=== PATIENT | male | born 1955 | race Caucasian/White ===

== ENCOUNTER 2016-10-01 18:02 | Inpatient (IN) ==
[2016-10-01] MEDS ORDERED: Piperacillin/Tazobactam 3.375 GM in D5% in Water (Mini-Bag+) 100 ML IVPB ONE (19:43)
[2016-10-01] MEDS ORDERED: Vancomycin 1,000 MG in D5% in Water 250 ML IVPB ONE (19:43)
[2016-10-01 20:06] LABS: Basophils % 0.2 %; Eosinophils % 0.1 %; Hematocrit 42.5 % (37.5-50.1); Hemoglobin 13.6 g/dL (12.9-16.9); Immature Granulocytes % 0.8 % (0-4); Lymphocytes % 6.2 %; Mean Corpuscular Hemoglobin 28.6 pg (28.0-33.3); Mean Corpuscular Volume 89.5 fL (83.0-100.0); Mean Platelet Volume 10.1 fL (9.4-12.4); Monocytes # 1.5 K/mcL (0.0-1.3); Monocytes % 9.1 %; Neutrophils # 13.8 K/mcL (1.6-8.9); Platelet Count 146 K/mcL (140-400); Red Blood Count 4.75 M/mcL (4.19-5.50); Red Cell Distribution Width 14.1 % (11.5-14.5); Segmented Neutrophils % 83.6 %
[2016-10-01 20:12] LABS: INR 1.3; Prothrombin Time 14.5 Seconds (9.4-12.1)
[2016-10-01 20:14] LABS: Activated Partial Thrombo Time 30.8 Seconds (26.0-36.0)
[2016-10-01 20:21] LABS: Albumin 2.7 g/dL (3.5-5.0); Albumin/Globulin Ratio 0.5 (1.1-2.2); Bilirubin,Direct 0.3 mg/dL (0.0-0.5); Bilirubin,Indirect 0.3 mg/dL (0.0-1.2); Bilirubin,Total 0.6 mg/dL (0.2-1.2); Calcium 10.3 mg/dL (8.6-10.8); Globulin 5.4 g/dL (2.4-3.5); Magnesium 1.4 mg/dL (1.6-2.6); Phosphorous 2.8 mg/dL (2.3-4.7); Total Protein 8.1 g/dL (6.0-8.3)
[2016-10-01] MEDS ORDERED: Magnesium Sulfate 1 GM in D5% in Water 100 ML IVPB ONE (20:35)
[2016-10-01] MEDS ORDERED: Azithromycin 500 MG in D5% in Water 250 ML IVPB ONE (20:47)
[2016-10-01] MEDS: 0.9 % Sodium Chloride 1,000 ML IVC SCH ×2 (21:16→23:23)
[2016-10-01 22:08] LABS: Bilirubin,Urine Negative (Negative); Blood,Urine Moderate (Negative); Clarity,Urine Clear (Clear); Color,Urine Yellow (Yellow); Glucose,Urine (UA) Normal (Normal); Ketones,Urine Negative (Negative); Leukocyte Esterase,Urine Negative (Negative); Nitrite,Urine Negative (Negative); Protein,Urine 100 mg/dL (Neg-Trace); Specific Gravity,Urine 1.014 (1.010-1.025); Urobilinogen,Urine Normal (Normal)
[2016-10-01 22:10] LABS: Bacteria,Urine None Seen per hpf (None-Few); Hyaline Casts,Urine None Seen per lpf (None-Few); Squamous Epithelial Cell,Urine Moderate per lpf (None-Few); WBC,Urine 0-3 per hpf (0-3)
[2016-10-01 22:20] LABS: RBC,Urine 0-3 per hpf (0-3)
[2016-10-01] MEDS ORDERED: 0.9 % Sodium Chloride 1,000 ML IVC SCH (22:30)
[2016-10-01] MEDS ORDERED: Ondansetron 4 MG/2 ML VIAL IVP PRN (22:30)
[2016-10-01] MEDS ORDERED: Acetaminophen 325 MG TABLET PO PRN (22:30)
--- NOTE | 2016-10-01 22:30 | Internal Med History&Physical ---
<Melissa King - Last Filed: 10/01/16 23:25> Date of Encounter: 10/01/16 Time of Encounter: 21:45 Assessment and Plan (1) Sepsis Current visit: No Status: Acute - 2 SIRS criteria (WBC 16.5 & HR 110). Lactic acid 1.0. - Likely secondary to LLL Strept. pneumoniae pneumonia and/or possible GI infection (given recent nausea/vomiting/diarrhea). - Blood culture pending. - Will obtain sputum culture and GI infection panel. - Continue rehydration with IV NS. - Continue IV ceftriaxone and azithromycin for pneumonia. - Closely monitor Time spent on admission: 45 minutes. Qualifiers: Sepsis type: Pneumococcus Qualified Code(s): A40.3 - Sepsis due to Streptococcus pneumoniae (2) Pneumonia Current visit: Yes Status: Acute - Worsening shortness of breath and productive cough with yellow sputum for 2-3 weeks. - CT chest/abdomen/pelvis found left lower lobe pneumonia with 3 mm centrilobular nodules. - Urine antigen positive for Strept. pneumoniae. Negative for Legionella. - Will obtain sputum culture. - Continue IV ceftriaxone and azithromycin. Further de-escalation based on clinical picture and culture result. Qualifiers: Pneumonia type: due to Pneumococcus Laterality: left Lung location: lower lobe of lung Qualified Code(s): J13 - Pneumonia due to Streptococcus pneumoniae (3) Gastroenteritis Current visit: Yes Status: Acute - One-week history of nausea/vomiting/diarrhea. - Check GI infection panel and stool culture. - May consider antimicrobial if the tests come positive for infections other than viral. (4) Acute on chronic renal failure Current visit: Yes Status: Acute - VANDANA on CKD with SCr 3.04 today (baseline ~ 2.5). - Likely prerenal given current sepsis picture and reported poor oral intake with nausea/vomiting/diarrhea. - Seems to improve (given SCr was 3.55 at [facility] yesterday). - Continue hydration with IV NS. - Avoid nephrotoxin. - Continue to monitor renal function and electrolytes. Qualifiers: Acute renal failure type: unspecified Chronic kidney disease stage: stage 3 (moderate) Qualified Code(s): N17.9 - Acute kidney failure, unspecified; N18.3 - Chronic kidney disease, stage 3 (moderate) (5) Hypomagnesemia Current visit: Yes Status: Acute - Mg 1.4 on initial presentation. - Patient had received MgSO4 1 gram IV in ED. - Continue to monitor serum Mg. (6) COPD (chronic obstructive pulmonary disease) Current visit: Yes Status: Chronic - Duoneb prn. Qualifiers: COPD type: unspecified COPD Qualified Code(s): J44.9 - Chronic obstructive pulmonary disease, unspecified (7) History of lung cancer Current visit: Yes Status: Chronic - History of right lung cancer s/p right pneumonectomy in 11/2014 and last chemotherapy in 09/2015. - Per patient, he sees oncologist at [facility] and is told he is in remission. (8) DVT prophylaxis Current visit: Yes Status: Acute - SQ heparin. Internal Medicine - H&P: HPI Chief complaint: Nausea/vomiting/diarrhea Admitted From: Emergency Dept Plans for Post Hospital Care: Home History of present illness: Mr. Escalante is a 61 year old male with PMH of CKD stage 3, COPD and history of right lung cancer s/p right pneumonectomy in 11/2014 and last chemo in 09/2015. Patient presented with complaint of nausea, vomiting and diarrhea for one week. Patient describes the diarrhea as watery brown stools 15-20 times a day but no blood or dark stool. Other associated symptoms include chills and poor appetite. Patient states having similar symptoms at last week of May 2016 and was hospitalized at [facility] for dehydration. Per patient, he only got IV fluid at time and he got better. Patient also reports having worsening shortness of breath and productive cough with yellow sputum for 2-3 weeks. Patient notices increase in his prn inhaler use. Patient denies fever, chest pain/discomfort, abdominal pain, dysuria, skin rash/itchiness. Per patient, he initially presented to [facility] on 09/30/16 and received IV fluid and antibiotic there but then discharged home. Patient feel his symptoms are not getting better so presented to [place] ED. Patient denies recent travel or sick contact. Patient denies eating raw food or food other than his normal usual. In ED, patient was noted to have leukocytosis (WBC 16.5) & tachycardia (HR 110) . CT chest/abdomen/pelvis found left lower lobe pneumonia with 3 mm centrilobular nodules. Patient received 1-L NS bolus, IV ceftriaxone and azithromycin in ED. Past Med Surg Social Fam HX - Past Medical History Medical history: cancer (Right lung cancer), COPD, hypertension, other (CKD stage 3) Psychiatric history: no psych history - Past Surgical History Surgical History: other (Right pneumonectomy 11/2014) - Social History Smoking Status: Former smoker Smokeless Tobacco Status: No Alcohol use: none Drug use: none - Family History Brother Hx Family Cancer: Yes (colon cancer) Father Hx Family Respiratory Disorders: Yes (COPD) Mother Living Status: Age at : 70 Cause of : Brain tumor Hx Family Cardiac Disorders: No Hx Family Respiratory Disorders: Yes (COPD) Hx Family Cancer: Yes (lung) Hx Family GI Disorders: No Hx Family Genitourinary Disorders: No Hx Family Endocrine Disorder: No Hx Family Musculoskeletal Disorders: No Hx Family Neuromuscular Disorders: No Hx Family Neurologic Disorders: No Hx Family HEENT Disorders: No Hx Family Autoimmune Disorders: No Hx Family Reproductive Disorders: No Hx Family Psychosocial Disorders: No Hx Family Medical Disorders: No Internal Medicine - H&P: Meds Metoprolol XL (24 HR) Succ [Toprol XL] 25 mg PO QAM 04/01/15 [History] Albuterol Sulfate [Proair Hfa] 2 puff IH Q4H PRN 12/13/15 [History] Calcitriol [Rocaltrol] 0.25 mcg PO DAILY 10/01/16 [History] Ergocalciferol (VITAMIN D2) [Vitamin D2] 50,000 unit PO QWEEK 10/01/16 [History] Allergies No Known Allergies Allergy (Verified 12/13/15 07:31) All Systems PM: A 10-system review of systems was performed and is negative for pertinent findings except as documented above in the HPI. - Constitutional Constitutional: anorexia, chills, no fever(s) - EENT Eyes: no change in vision Ears: no decreased hearing Nose, mouth and throat: no dysphagia, no odynophagia - Cardiovascular Cardiovascular ROS IM: no chest pain, no edema, no lightheadedness, no syncope - Respiratory Respiratory: as per HPI, cough, dyspnea, change in phlegm color (Yellow sputum) , no hemoptysis - Gastrointestinal Gastrointestinal: as per HPI, diarrhea, nausea, vomiting, no abdominal pain, no hematochezia, no melena - Genitourinary Genitourinary ROS male: no difficulty urinating, no dysuria, no hematuria - Musculoskeletal Musculoskeletal ROS IM: no arthralgias, no myalgias - Integumentary Integumentary IM: no pruritus, no rash - Neurological Neurological ROS: no focal weakness, no numbness, no tingling - Hematologic/Lymphatic Hematologic/Lymphatic: easy bruising, no easy bleeding - Constitutional Vitals: Temp Pulse Resp BP Pulse Ox 98.6 F 110 20 123/89 98 10/01/16 18:25 10/01/16 19:43 10/01/16 19:43 10/01/16 19:43 10/01/16 19:43 General appearance: Present: cooperative, A&O X 3, no acute distress, answers questions appropriately - Head Head exam: Present: atraumatic, normocephalic - Eye Eye exam: Present: EOMI, PERRL, conjuntiva pink, sclera anicteric - ENT ENT exam: Present: mucous membranes dry - Neck Neck exam general surgery: Present: supple, trachea midline. Absent: lymphadenopathy - Respiratory Respiratory exam: Present: decreased breath sounds (Right lung). Absent: accessory muscle use, rales, rhonchi, wheezes - Cardiovascular Cardiovascular exam: Present: +S1, +S2, tachycardia. Absent: diastolic murmur, gallop, rubs, systolic murmur - GI/Abdominal GI/Abdominal exam: Present: normal bowel sounds, soft, no peritoneal signs. Absent: distended, tenderness - Extremities Exam Extremities exam: Present: warm, radial pulses palpable and symmetrical. Absent : calf tenderness, cyanotic, pedal edema - Neurological Exam Neurological exam: Present: CN II-XII intact, oriented X3, no focal deficits. Absent: pronater drift, facial droop, speech deficit - Skin Skin exam: Present: dry, intact, warm Internal Med - H&P Results - Labs CBC & Chem 7: 10/01/16 19:57 10/01/16 19:57 Labs: Urine 10/01/16 Range/Units 22:00 Urine Color Yellow (Yellow) Urine Clarity Clear (Clear) Urine pH 6.0 (5.0-8.0) pH Units Ur Specific [place] 1.014 (1.010-1.025) Urine Protein 100 H (Neg-Trace) mg/dL Urine Glucose (UA) Normal (Normal) mg/dL <Benito Min - Last Filed: 10/02/16 00:24> Date of Encounter: 10/01/16 Internal Medicine - H&P: HPI History of present illness: Mr. Escalante is a 61 year old male All Systems PM: A 10-system review of systems was performed and is negative for pertinent findings except as documented above in the HPI. - Constitutional Vitals: Temp Pulse Resp BP Pulse Ox 99.2 F 108 18 149/106 98 10/01/16 22:54 10/01/16 22:54 10/01/16 22:54 10/01/16 22:54 10/01/16 22:54 Internal Med - H&P Results - Labs CBC & Chem 7: 10/01/16 19:57 10/01/16 19:57 - Attending Attestation Date of service is 10/01/2016. I examined this patient and my medical decision-making was reviewed with the Resident Physician, Dr Melissa King. I agree with the documented findings, disposition and treatment plan as described except to the extent set forth below. My findings are summarized below: Patient presented to the hospital with diarrhea, dehydration and shortness of breath. On exam left lung is clear, right hemithorax has no breath sounds audible. Assessment: Left lower lobe pneumonia based on chills, shortness of breath and CT findings of pneumonia which I have personally reviewed. Plan: Ceftriaxone and azithromycin. IV fluids for acute on chronic renal failure.
[2016-10-01] MEDS ORDERED: Ipratropium/Albuterol Neb 3 ML IH PRN (23:26)
[2016-10-01] MEDS ORDERED: 0.9 % Sodium Chloride 1,000 ML IVC ONE (23:32)
[2016-10-02] MEDS: Azithromycin 500 MG in D5% in Water 250 ML IVPB SCH (03:20)
[2016-10-02] MEDS: 0.9 % Sodium Chloride 1,000 ML IVC SCH ×3 (03:21→21:08)
[2016-10-02 05:05] LABS: Basophils % 0.2 %; Eosinophils % 0.3 %; Hematocrit 39.1 % (37.5-50.1); Hemoglobin 12.5 g/dL (12.9-16.9); Immature Granulocytes % 0.8 % (0-4); Lymphocytes # 1.1 K/mcL (0.6-4.6); Lymphocytes % 8.5 %; Mean Corpuscular Hemoglobin 28.6 pg (28.0-33.3); Mean Corpuscular Volume 89.5 fL (83.0-100.0); Mean Platelet Volume 11.2 fL (9.4-12.4); Monocytes # 1.4 K/mcL (0.0-1.3); Monocytes % 10.4 %; Neutrophils # 10.6 K/mcL (1.6-8.9); Platelet Count 110 K/mcL (140-400); Red Blood Count 4.37 M/mcL (4.19-5.50); Red Cell Distribution Width 14.1 % (11.5-14.5); Segmented Neutrophils % 79.8 %
--- NOTE | 2016-10-02 05:12 | Emergency Department Note ---
Disposition Clinical Impression: Pneumonia Qualifiers: Pneumonia type: due to Pneumococcus Laterality: left Lung location: lower lobe of lung Qualified Code(s): J13 - Pneumonia due to Streptococcus pneumoniae Disposition: Admitted As Inpatient Condition: Fair General Adult HPI - General Chief complaint: ED Nausea/Vomiting/Diarrhea Stated complaint: "Kidney failure" Time Seen by Provider: 10/01/16 19:26 Source: patient Limitations: no limitations Nursing Notes Reviewed: Yes Vital Signs Reviewed: Yes - History of Present Illness HPI Narrative: 61-year-old male presents with concern for acute kidney injury. He was seen at an outside hospital yesterday and was told to [place] was elevated. Ultimately he came this evening for recheck of his creatinine. I did note that his white blood cell count was elevated at the outside hospital at 21,000. I did think this in the setting of recent cough he warranted further workup. He reports some cough with productive sputum and has 1 long from previous lung cancer. He denies sick or ill contacts. Pain Scale: 0 - Related Data Home Medications Medication Instructions Recorded Confirmed Metoprolol XL (24 HR) Succ [Toprol 25 mg PO QAM 04/01/15 10/01/16 XL] Albuterol Sulfate [Proair Hfa] 2 puff IH Q4H PRN 12/13/15 10/01/16 Calcitriol [Rocaltrol] 0.25 mcg PO DAILY 10/01/16 10/01/16 Ergocalciferol (VITAMIN D2) 50,000 unit PO QWEEK 10/01/16 10/01/16 [Vitamin D2] Allergies Allergy/AdvReac Type Severity Reaction Status Date / Time No Known Allergies Allergy Verified 12/13/15 07:31 All systems ED: reviewed and negative except as stated. Past Medical History - Past Medical History Medical history: Reports: cancer (Right lung cancer), COPD, hypertension, other (CKD stage 3) Surgical history: Reports: other (Right pneumonectomy 11/2014) Psychiatric history: Reports: no psych history - Social History Smoking Status: Former smoker Smokeless Tobacco Status: No Alcohol use: Reports: none Drug use: Reports: none Physical Exam - General Limitations: no limitations General appearance: alert, in no apparent distress - Head Head exam: atraumatic - Eye Eye exam: Present: normal appearance - ENT ENT exam: normal exam - Neck Neck exam: Present: normal inspection - Chest Chest inspection: Present: normal inspection - Respiratory Respiratory exam: Present: normal lung sounds bilaterally - Cardiovascular Cardiovascular exam: Present: tachycardia - Abdominal Exam Abdominal exam: Present: soft, Non-Tender - Extremities Exam Extremities exam: Present: normal inspection, full ROM - Expanded Lower Extremity Exam Neurovascular/Tendon exam: Present: normal capillary refill, pulse deficit Gait: observed and normal, not tested/not observed - Back Exam Back exam: Present: normal inspection - Neurological Exam Neurological exam: Present: alert, oriented X3, CN II-XII intact - Psychiatric Psychiatric exam: Present: normal affect, normal mood - Skin Skin exam: Present: warm, dry Course Vital Signs Temperature 98.6 F 10/01/16 18:25 Pulse Rate 115 10/01/16 18:25 Respiratory Rate 18 10/01/16 18:25 Blood Pressure 122/79 10/01/16 18:25 O2 Sat by Pulse Oximetry 97 10/01/16 18:25 Temperature 99.2 F 10/01/16 22:54 Pulse Rate 108 10/01/16 22:54 Respiratory Rate 18 10/01/16 22:54 Blood Pressure 149/106 10/01/16 22:54 O2 Sat by Pulse Oximetry 98 10/01/16 22:54 Oxygen Delivery Oxygen Delivery Room Air Medical Decision Making - MDM Narrative Medical decision making narrative: Patient found have acute kidney injury, pneumonia on CAT scan. Community- acquired antibiotics initiated. Lactate was checked and was normal. IV fluids given. Patient does have improvement of creatinine from yesterday. Plan to admit for further evaluation of pneumonia in the setting of acute kidney injury and underlying renal dysfunction. - Medical Records Medical records reviewed: Yes I reviewed the patient's medical records. - Lab Data Lab results reviewed: Yes I reviewed the patient's lab results. Result diagrams: 10/01/16 19:57 10/01/16 19:57 Lab Results 10/01/16 10/01/16 10/01/16 Range/Units 19:57 19:57 19:57 WBC 16.5 H (4.3-11.1) K/mcL RBC 4.75 (4.19-5.50) M/mcL Hgb 13.6 (12.9-16.9) g/dL Hct 42.5 (37.5-50.1) % MCV 89.5 (83.0-100.0) fL MCH 28.6 (28.0-33.3) pg MCHC 32.0 (31.6-35.5) g/dL RDW 14.1 (11.5-14.5) % Plt Count 146 (140-400) K/mcL MPV 10.1 (9.4-12.4) fL Immature Gran % 0.8 (0-4) % Seg Neutrophils % 83.6 % Lymphocytes % 6.2 % Monocytes % 9.1 % Eosinophils % 0.1 % Basophils % 0.2 % Neutrophils # 13.8 H (1.6-8.9) K/mcL Lymphocytes # 1.0 (0.6-4.6) K/mcL Monocytes # 1.5 H (0.0-1.3) K/mcL Eosinophils # 0.0 (0.0-0.6) K/mcL Basophils # 0.0 (0.0-0.2) K/mcL PT (9.4-12.1) Seconds INR APTT (26.0-36.0) Seconds Sodium (136-145) mEq/L Potassium (3.5-4.5) mEq/L Chloride (98-109) mEq/L Carbon Dioxide (19-29) mEq/L BUN (8-26) mg/dL Creatinine (0.72-1.25) mg/dL Est GFR ( Amer) (> 60) Est GFR (Non-Af Amer) (> 60) BUN/Creatinine Ratio (6-26) Glucose (70-99) mg/dL POC Glucose (58-89) Calculated Osmolality (280-300) Lactic Acid (0.5-2.2) mmol/L Calcium (8.6-10.8) mg/dL Phosphorus (2.3-4.7) mg/dL Magnesium (1.6-2.6) mg/dL Total Bilirubin (0.2-1.2) mg/dL Direct Bilirubin (0.0-0.5) mg/dL Indirect Bilirubin (0.0-1.2) mg/dL AST (5-34) Units/L ALT (0-55) Units/L Alkaline Phosphatase (38-126) Units/L Troponin I (0-0.03) ng/mL B-Natriuretic Peptide 112 H (0-100) pg/mL Serum Total Protein (6.0-8.3) g/dL Albumin (3.5-5.0) g/dL Globulin (2.4-3.5) g/dL Albumin/Globulin Ratio (1.1-2.2) Lipase < 10 (8-78) Units/L Urine Color (Yellow) Urine Clarity (Clear) Urine pH (5.0-8.0) pH Units Ur Specific [place] (1.010-1.025) Urine Protein (Neg-Trace) mg/dL Urine Glucose (UA) (Normal) mg/dL Urine Ketones (Negative) mg/dL Urine Blood (Negative) Urine Nitrite (Negative) Urine Bilirubin (Negative) Urine Urobilinogen (Normal) mg/dL Ur Leukocyte Esterase (Negative) Urine Microscopic RBC (0-3) per hpf Urine Microscopic WBC (0-3) per hpf Ur Squamous Epith Cells (None-Few) per lpf Urine Bacteria (None-Few) per hpf Hyaline Casts (None-Few) per lpf Urine Yeast Ur Culture Indicated? (NO) 10/01/16 10/01/16 10/01/16 Range/Units 19:57 19:57 19:57 WBC (4.3-11.1) K/mcL RBC (4.19-5.50) M/mcL Hgb (12.9-16.9) g/dL Hct (37.5-50.1) % MCV (83.0-100.0) fL MCH (28.0-33.3) pg MCHC (31.6-35.5) g/dL RDW (11.5-14.5) % Plt Count (140-400) K/mcL MPV (9.4-12.4) fL Immature Gran % (0-4) % Seg Neutrophils % % Lymphocytes % % Monocytes % % Eosinophils % % Basophils % % Neutrophils # (1.6-8.9) K/mcL Lymphocytes # (0.6-4.6) K/mcL Monocytes # (0.0-1.3) K/mcL Eosinophils # (0.0-0.6) K/mcL Basophils # (0.0-0.2) K/mcL PT 14.5 H (9.4-12.1) Seconds INR 1.3 APTT 30.8 (26.0-36.0) Seconds Sodium 138 (136-145) mEq/L Potassium 4.0 (3.5-4.5) mEq/L Chloride 106 (98-109) mEq/L Carbon Dioxide 21 (19-29) mEq/L BUN 52 H (8-26) mg/dL Creatinine 3.04 H (0.72-1.25) mg/dL Est GFR ( Amer) 26 L (> 60) Est GFR (Non-Af Amer) 21 L (> 60) BUN/Creatinine Ratio 17 (6-26) Glucose 110 H (70-99) mg/dL POC Glucose (58-89) Calculated Osmolality 301 H (280-300) Lactic Acid 1.0 (0.5-2.2) mmol/L Calcium 10.3 (8.6-10.8) mg/dL Phosphorus 2.8 (2.3-4.7) mg/dL Magnesium 1.4 L (1.6-2.6) mg/dL Total Bilirubin 0.6 (0.2-1.2) mg/dL Direct Bilirubin 0.3 (0.0-0.5) mg/dL Indirect Bilirubin 0.3 (0.0-1.2) mg/dL AST 13 (5-34) Units/L ALT 12 (0-55) Units/L Alkaline Phosphatase 111 (38-126) Units/L Troponin I (0-0.03) ng/mL B-Natriuretic Peptide (0-100) pg/mL Serum Total Protein 8.1 (6.0-8.3) g/dL Albumin 2.7 L (3.5-5.0) g/dL Globulin 5.4 H (2.4-3.5) g/dL Albumin/Globulin Ratio 0.5 L (1.1-2.2) Lipase (8-78) Units/L Urine Color (Yellow) Urine Clarity (Clear) Urine pH (5.0-8.0) pH Units Ur Specific [place] (1.010-1.025) Urine Protein (Neg-Trace) mg/dL Urine Glucose (UA) (Normal) mg/dL Urine Ketones (Negative) mg/dL Urine Blood (Negative) Urine Nitrite (Negative) Urine Bilirubin (Negative) Urine Urobilinogen (Normal) mg/dL Ur Leukocyte Esterase (Negative) Urine Microscopic RBC (0-3) per hpf Urine Microscopic WBC (0-3) per hpf Ur Squamous Epith Cells (None-Few) per lpf Urine Bacteria (None-Few) per hpf Hyaline Casts (None-Few) per lpf Urine Yeast Ur Culture Indicated? (NO) 10/01/16 10/01/16 10/01/16 Range/Units 19:57 22:00 22:57 WBC (4.3-11.1) K/mcL RBC (4.19-5.50) M/mcL Hgb (12.9-16.9) g/dL Hct (37.5-50.1) % MCV (83.0-100.0) fL MCH (28.0-33.3) pg MCHC (31.6-35.5) g/dL RDW (11.5-14.5) % Plt Count (140-400) K/mcL MPV (9.4-12.4) fL Immature Gran % (0-4) % Seg Neutrophils % % Lymphocytes % % Monocytes % % Eosinophils % % Basophils % % Neutrophils # (1.6-8.9) K/mcL Lymphocytes # (0.6-4.6) K/mcL Monocytes # (0.0-1.3) K/mcL Eosinophils # (0.0-0.6) K/mcL Basophils # (0.0-0.2) K/mcL PT (9.4-12.1) Seconds INR APTT (26.0-36.0) Seconds Sodium (136-145) mEq/L Potassium (3.5-4.5) mEq/L Chloride (98-109) mEq/L Carbon Dioxide (19-29) mEq/L BUN (8-26) mg/dL Creatinine (0.72-1.25) mg/dL Est GFR ( Amer) (> 60) Est GFR (Non-Af Amer) (> 60) BUN/Creatinine Ratio (6-26) Glucose (70-99) mg/dL POC Glucose 130 H (58-89) Calculated Osmolality (280-300) Lactic Acid (0.5-2.2) mmol/L Calcium (8.6-10.8) mg/dL Phosphorus (2.3-4.7) mg/dL Magnesium (1.6-2.6) mg/dL Total Bilirubin (0.2-1.2) mg/dL Direct Bilirubin (0.0-0.5) mg/dL Indirect Bilirubin (0.0-1.2) mg/dL AST (5-34) Units/L ALT (0-55) Units/L Alkaline Phosphatase (38-126) Units/L Troponin I 0.01 (0-0.03) ng/mL B-Natriuretic Peptide (0-100) pg/mL Serum Total Protein (6.0-8.3) g/dL Albumin (3.5-5.0) g/dL Globulin (2.4-3.5) g/dL Albumin/Globulin Ratio (1.1-2.2) Lipase (8-78) Units/L Urine Color Yellow (Yellow) Urine Clarity Clear (Clear) Urine pH 6.0 (5.0-8.0) pH Units Ur Specific [place] 1.014 (1.010-1.025) Urine Protein 100 H (Neg-Trace) mg/dL Urine Glucose (UA) Normal (Normal) mg/dL Urine Ketones Negative (Negative) mg/dL Urine Blood Moderate H (Negative) Urine Nitrite Negative (Negative) Urine Bilirubin Negative (Negative) Urine Urobilinogen Normal (Normal) mg/dL Ur Leukocyte Esterase Negative (Negative) Urine Microscopic RBC 0-3 (0-3) per hpf Urine Microscopic WBC 0-3 (0-3) per hpf Ur Squamous Epith Cells Moderate H (None-Few) per lpf Urine Bacteria None Seen (None-Few) per hpf Hyaline Casts None Seen (None-Few) per lpf Urine Yeast Test Not Performed Ur Culture Indicated? NO (NO)
[2016-10-02 05:23] LABS: Calcium 9.4 mg/dL (8.6-10.8); Magnesium 1.5 mg/dL (1.6-2.6); Potassium 3.9 mEq/L (3.5-4.5)
[2016-10-02] MEDS: *HR* Heparin 5,000 UNIT/ML VIAL SQ SCH ×3 (05:37→21:07)
--- NOTE | 2016-10-02 11:28 | Internal Med Progress Note ---
<Chuy Dale - Last Filed: 10/02/16 14:36> Date of Encounter: 10/02/16 Time of Encounter: 11:11 - Assessment and plan (1) Sepsis Current Visit: No Status: Acute Assessment and plan: SIRS 2/4 on admission HR 115, and WBC 16.5 with Pneumoniae and/or GI source. Today HR 120, WBC 13.3. Urine - positive for s. pneumoniae. Chest CT LLL pneumoniae 3 mm central lobular nodule In ED started on Vanc + zosyn and then switched to Azithromcin + Ceftriaxone. - Blood and sputum CX - pending - ct. IV NS - Ct IV Ceftriaxone 2g + Azthromycin - GI panel pending Qualifiers: Sepsis type: Pneumococcus Qualified Code(s): A40.3 - Sepsis due to Streptococcus pneumoniae (2) Pneumonia Current Visit: Yes Status: Acute Assessment and plan: hx: R pneumoectomy, cancer and chemo tx. Positive urine Cx. Chest CT LLL pneumoniae 3 mm central lobular nodule. Ct. ceftriaxone Qualifiers: Pneumonia type: due to Pneumococcus Laterality: left Lung location: lower lobe of lung Qualified Code(s): J13 - Pneumonia due to Streptococcus pneumoniae (3) Acute on chronic renal failure Current Visit: Yes Status: Acute Assessment and plan: Today Cr. 2.61, baseline 2.5. resolved continue to monitor Cr. Qualifiers: Acute renal failure type: unspecified Chronic kidney disease stage: stage 3 (moderate) Qualified Code(s): N17.9 - Acute kidney failure, unspecified; N18.3 - Chronic kidney disease, stage 3 (moderate) (4) Gastroenteritis Current Visit: Yes Status: Acute Assessment and plan: 1 week history of nausea, vomiting and diarrhea. Watery brown stool 15-20x a day. met SIRS criteria upon admission GI panel - pending. (5) History of pneumonectomy Current Visit: No Status: Acute Assessment and plan: stable (6) Hypomagnesemia Current Visit: Yes Status: Acute Assessment and plan: ordered replacement Mg. Continue monitor Mg. (7) DVT prophylaxis Current Visit: Yes Status: Acute Assessment and plan: continue heparin. - Subjective Interval history: Mr Escalante is 61 yo M with a 1 week history of tirenedess and general weakness with a Hx: CKD 3, COPD, Lung cancer with R Pneumoectomy on 10/15 and last chemo 10/07, and a recent visit to [facility] ED 09/30/16 with similar symptoms. he reports nausea, vomiting, diarrhea, chills and a decrease in appetite for 1 week. He denies fever, chest pain, abdominal pain, change in urine, or rash. Today he reports feeling good, with 1 solid bowel movement. he denies n/v/d/c today. - Constitutional Vitals: Temp Pulse Resp BP Pulse Ox 99.1 F 120 19 118/75 96 10/02/16 08:21 10/02/16 08:21 10/02/16 08:21 10/02/16 08:21 10/02/16 08:21 General appearance: Present: cooperative, A&O X 3, no acute distress, answers questions appropriately - Head Head exam: Present: atraumatic, normocephalic - Respiratory Respiratory exam: Present: CTAB. Absent: accessory muscle use, rales, rhonchi, wheezes - Cardiovascular Cardiovascular exam: Present: RRR, +S1, +S2. Absent: diastolic murmur, gallop, rubs, systolic murmur - GI/Abdominal GI/Abdominal exam: Present: normal bowel sounds, soft, no peritoneal signs. Absent: distended, tenderness - Neurological Exam Neurological exam: Present: oriented X3 - Psychiatric Psychiatric exam: Present: normal affect, normal mood Internal Medicine: Result - Labs CBC & Chem 7: 10/02/16 04:24 10/02/16 04:24 Labs: Short CBC 10/02/16 Range/Units 04:24 WBC 13.3 H (4.3-11.1) K/mcL Hgb 12.5 L (12.9-16.9) g/dL Hct 39.1 (37.5-50.1) % Plt Count 110 L (140-400) K/mcL Neutrophils # 10.6 H (1.6-8.9) K/mcL BMP 10/02/16 04:24 Sodium 139 Potassium 3.9 Chloride 111 H Carbon Dioxide 18 L BUN 46 H Creatinine 2.61 H Glucose 96 Calcium 9.4 - ABG Interpretation ABG results: PT/INR, D-dimer PT 14.5 Seconds (9.4-12.1) H 10/01/16 19:57 Consult Discharge Plan - Plan Referrals: Tyron Gonzales DO [Primary Care Provider] - (Office will call patient with and appointment once they have some cancellations. But please call the office at discharge to make the office aware) <Florencio Lutz - Last Filed: 10/02/16 16:10> Date of Encounter: 10/02/16 - Constitutional Vitals: Temp Pulse Resp BP Pulse Ox 98.2 F 111 19 119/70 98 10/02/16 12:12 10/02/16 12:12 10/02/16 12:12 10/02/16 12:12 10/02/16 12:12 Internal Medicine: Result - Labs CBC & Chem 7: 10/02/16 04:24 10/02/16 04:24 Labs: Short CBC 10/02/16 Range/Units 04:24 WBC 13.3 H (4.3-11.1) K/mcL Hgb 12.5 L (12.9-16.9) g/dL Hct 39.1 (37.5-50.1) % Plt Count 110 L (140-400) K/mcL Neutrophils # 10.6 H (1.6-8.9) K/mcL BMP 10/02/16 04:24 Sodium 139 Potassium 3.9 Chloride 111 H Carbon Dioxide 18 L BUN 46 H Creatinine 2.61 H Glucose 96 Calcium 9.4 - ABG Interpretation ABG results: PT/INR, D-dimer PT 14.5 Seconds (9.4-12.1) H 10/01/16 19:57 - Attending Attestation I examined this patient and my medical decision-making was reviewed with the Resident Physician on 10/02/16. I agree with the documented findings, disposition and treatment plan as described except to the extent set forth below. 61 M with hx of Lung CA s/p R pneumectomy, HTN , CKD III admitted and being managed for sepsis secondary to peumococcal pneumonia, VANDANA, Gastroenteritis He is laying flat and comfortable at time of review, denies new complains He remains tachycardic and reports he takes metoprolol for same EKG is sinus tachy Chest with decreased air entry on R lung zone, abdomen is soft and not tender, no palpable organomegaly, no pedal edema Labs and imaging reviewed Continue IVF hydration, resume home BB, Continue antibiotics, follow sputum cultures. Rest of details as in resident physician's documentation
[2016-10-02] MEDS ORDERED: Magnesium Sulfate 2 GM in D5% in Water 100 ML IVPB ONE (11:41)
[2016-10-02] MEDS ORDERED: Metoprolol XL (24 HR) Succ 25 MG TAB.ER.24H PO SCH (11:45)
--- NOTE | 2016-10-02 14:47 | Electrocardiograph Report ---
[address] [address] Test Date: 2016-10-01 Pat Name: Yg Escalante Department: 102 Room: 2A42 Gender: M [employer] Supervisor: Francesca : 1955 Requested By: Uzair Mcnulty Order Number: [id number] Reading MD: Crystal Amin Measurements Intervals [place] Rate: 112 P: 48 IA: 136 QRS: 29 QRSD: 86 T: 51 QT: 287 QTc: 353 Interpretive Statements SINUS TACHYCARDIA POSSIBLE RIGHT ATRIAL ENLARGEMENT [0.25mV P WAVE] ABNORMAL RHYTHM ECG Electronically Signed On 10-02-2016 14:46:01 EDT by Crystal Amin
[2016-10-02] MEDS: Magnesium Sulfate 2 GM in D5% in Water 100 ML IVPB SCH ×2 (15:09→17:05)
[2016-10-02] MEDS ORDERED: *HR* Metoprolol 5 MG/5 ML VIAL IVP ONE ×2 (15:49→16:51)
[2016-10-02 17:15] LABS: Adenovirus F 40/41 PCR Not detected (Not detect); Astrovirus PCR Not detected (Not detect); C.difficile Toxin A/B by PCR Not detected (Not detect); Campylobacter by PCR Not detected (Not detect); Cryptosporidium by PCR Not detected (Not detect); Cyclospora cayetanensis PCR Not detected (Not detect); E. coli O157 by PCR Not detected (Not detect); Entamoeba histolytica PCR Not detected (Not detect); Enteroaggregative E.coli(EAEC) Not detected (Not detect); Enteropathogenic E.coli(EPEC) Not detected (Not detect); Enterotoxigenic E.coli (ETEC) Not detected (Not detect); Giardia lamblia PCR Not detected (Not detect); Norovirus GI/GII PCR Not detected (Not detect); Plesiomonas shigelloides PCR Not detected (Not detect); Rotavirus A PCR Not detected (Not detect); Salmonella PCR Not detected (Not detect); Sapovirus PCR Not detected (Not detect); Shig/EnteroinvasiveE coli EIEC Not detected (Not detect); Shigalike tox-prod E coli STEC Not detected (Not detect); Vibrio PCR Not detected (Not detect); Vibrio cholerae PCR Not detected (Not detect); Yersinia enterocolitica PCR Not detected (Not detect)
[2016-10-03] MEDS: Azithromycin 500 MG in D5% in Water 250 ML IVPB SCH (00:36)
[2016-10-03] MEDS: *HR* Heparin 5,000 UNIT/ML VIAL SQ SCH ×3 (05:15→21:40)
[2016-10-03] MEDS: 0.9 % Sodium Chloride 1,000 ML IVC SCH (05:16)
--- NOTE | 2016-10-03 08:18 | Internal Med Progress Note ---
<Chuy Dale - Last Filed: 10/03/16 11:18> Date of Encounter: 10/03/16 Time of Encounter: 08:12 - Assessment and plan (1) Sepsis Current Visit: No Status: Acute Assessment and plan: SIRS 2/4 on admission HR 115, and WBC 16.5 with Pneumoniae and/or GI source. Urine - positive for s. pneumoniae. sputum Cx postive for gram + cocci and gram - rods. GI panel came back negative. Chest CT LLL pneumoniae 3 mm central lobular nodule In ED started on Vanc + zosyn and then switched to Azithromcin + Ceftriaxone. -Today HR 106, RR 20 - Blood - pending - ct. IV NS - Ct IV Ceftriaxone 2g + Azthromycin - GI panel pending Qualifiers: Sepsis type: Pneumococcus Qualified Code(s): A40.3 - Sepsis due to Streptococcus pneumoniae (2) Pneumonia Current Visit: Yes Status: Acute Assessment and plan: hx: R pneumoectomy, cancer and chemo tx. Positive urine Cx. Chest CT LLL pneumoniae 3 mm central lobular nodule. Ct. ceftriaxone Qualifiers: Pneumonia type: due to Pneumococcus Laterality: left Lung location: lower lobe of lung Qualified Code(s): J13 - Pneumonia due to Streptococcus pneumoniae (3) Acute on chronic renal failure Current Visit: Yes Status: Acute Assessment and plan: Today Cr. 2.61, baseline 2.5. resolved continue to monitor Cr. Qualifiers: Acute renal failure type: unspecified Chronic kidney disease stage: stage 3 (moderate) Qualified Code(s): N17.9 - Acute kidney failure, unspecified; N18.3 - Chronic kidney disease, stage 3 (moderate) (4) Gastroenteritis Current Visit: Yes Status: Acute Assessment and plan: 1 week history of nausea, vomiting and diarrhea. Watery brown stool 15-20x a day. met SIRS criteria upon admission GI panel is negative (5) History of pneumonectomy Current Visit: No Status: Acute Assessment and plan: stable (6) Hypomagnesemia Current Visit: Yes Status: Acute Assessment and plan: Mg 2.2 today. continue to monitor (7) DVT prophylaxis Current Visit: Yes Status: Acute Assessment and plan: continue heparin. (8) Tachycardia Current Visit: Yes Status: Acute Assessment and plan: chronically tachy. Today BP in 180's - increased metoprolol to 75 mg PO and given 5 mg lopressor IV. - Subjective Interval history: Mr Escalante is 61 yo M with a 1 week history of tirenedess and general weakness with a Hx: CKD 3, COPD, Lung cancer with R Pneumoectomy on 12/06 and last chemo 10/07, and a recent visit to [facility] ED 09/30/16 with similar symptoms. he reports nausea, vomiting, diarrhea, chills and a decrease in appetite for 1 week. He denies fever, chest pain, abdominal pain, change in urine, or rash. Today he reports feeling pretty good. he denies n/v/d/c today. - Constitutional Vitals: Temp Pulse Resp BP Pulse Ox 98.6 F 106 20 115/69 97 10/03/16 06:54 10/03/16 06:54 10/03/16 06:54 10/03/16 06:54 10/03/16 07:53 General appearance: Present: cooperative, A&O X 3, no acute distress, answers questions appropriately - Respiratory Respiratory exam: Present: CTAB (Right has very mild air sounds due to pneumoectomy). Absent: accessory muscle use, rales, rhonchi, wheezes - GI/Abdominal GI/Abdominal exam: Present: normal bowel sounds, soft, no peritoneal signs. Absent: distended, tenderness Internal Medicine: Result - Labs CBC & Chem 7: 10/03/16 08:37 10/03/16 08:37 - ABG Interpretation ABG results: PT/INR, D-dimer PT 14.5 Seconds (9.4-12.1) H 10/01/16 19:57 Consult Discharge Plan - Plan Referrals: Tyron Gonzales DO [Primary Care Provider] - (Office will call patient with and appointment once they have some cancellations. But please call the office at discharge to make the office aware) <Florencio Lutz - Last Filed: 10/03/16 11:55> Date of Encounter: 10/03/16 - Constitutional Vitals: Temp Pulse Resp BP Pulse Ox 98.6 F 106 20 115/69 97 10/03/16 06:54 10/03/16 06:54 10/03/16 06:54 10/03/16 06:54 10/03/16 07:53 Internal Medicine: Result - Labs CBC & Chem 7: 10/03/16 08:37 10/03/16 08:37 Labs: Short CBC 10/03/16 Range/Units 08:37 WBC 11.8 H (4.3-11.1) K/mcL Hgb 12.4 L (12.9-16.9) g/dL Hct 38.5 (37.5-50.1) % Plt Count 122 L (140-400) K/mcL BMP 10/03/16 08:37 Sodium 137 Potassium 3.8 Chloride 111 H Carbon Dioxide 16 L BUN 33 H D Creatinine 2.47 H Glucose 134 H Calcium 9.4 - ABG Interpretation ABG results: PT/INR, D-dimer PT 14.5 Seconds (9.4-12.1) H 10/01/16 19:57 - Attending Attestation I examined this patient and my medical decision-making was reviewed with the Resident Physician on 10/03/16. I agree with the documented findings, disposition and treatment plan as described except to the extent set forth below. 61 M with hx of Lung CA s/p R pneumectomy, HTN , CKD III admitted and being managed for sepsis secondary to peumococcal pneumonia, VANDANA, Gastroenteritis He is laying flat and comfortable at time of review, denies new complains He remains tachycardic , we have titrated his BB up His VANDANA on CKD is improving Sepsis is improving as WBC continues to trend down. Cr is improving, and is back to baseline Physical exam : VSS, sinus tachycardia-asymptomatic, chest exam show decreased air entry on R lung zone, abdomen is soft and not tender, no palpable organomegaly, no pedal edema Labs and imaging reviewed D/C IVF Mag and Potassium is normal Increase toprol Continue antibiotics, follow final cultures He is not hypoxic Rest of details as in resident physician's documentation
[2016-10-03 08:48] LABS: Hematocrit 38.5 % (37.5-50.1); Hemoglobin 12.4 g/dL (12.9-16.9); Mean Corpuscular HGB Conc 32.2 g/dL (31.6-35.5); Mean Corpuscular Hemoglobin 29.2 pg (28.0-33.3); Mean Corpuscular Volume 90.8 fL (83.0-100.0); Mean Platelet Volume 10.3 fL (9.4-12.4); Platelet Count 122 K/mcL (140-400); Red Blood Count 4.24 M/mcL (4.19-5.50); Red Cell Distribution Width 14.2 % (11.5-14.5)
[2016-10-03 09:00] LABS: Calcium 9.4 mg/dL (8.6-10.8); Potassium 3.8 mEq/L (3.5-4.5)
[2016-10-03] MEDS ORDERED: Metoprolol XL (24 HR) Succ 50 MG TAB.ER.24H PO SCH (09:00)
[2016-10-03] MEDS ORDERED: *HR* Metoprolol 5 MG/5 ML VIAL IVP ONE (10:33)
[2016-10-03] MEDS ORDERED: Metoprolol XL (24 HR) Succ 25 MG TAB.ER.24H PO ONE (10:45)
[2016-10-03] MEDS: *HR* Metoprolol 5 MG/5 ML VIAL IVP PRN ×2 (12:39→19:53)
[2016-10-03] MEDS ORDERED: 0.9 % Sodium Chloride 1,000 ML IVC ONE (16:15)
[2016-10-04] MEDS: Azithromycin 500 MG in D5% in Water 250 ML IVPB SCH (00:05)
[2016-10-04 05:22] LABS: Hematocrit 37.7 % (37.5-50.1); Hemoglobin 11.7 g/dL (12.9-16.9); Mean Corpuscular Hemoglobin 27.9 pg (28.0-33.3); Mean Platelet Volume 10.7 fL (9.4-12.4); Platelet Count 138 K/mcL (140-400); Red Blood Count 4.19 M/mcL (4.19-5.50); Red Cell Distribution Width 14.4 % (11.5-14.5)
[2016-10-04 05:30] LABS: Calcium 9.2 mg/dL (8.6-10.8); Potassium 3.9 mEq/L (3.5-4.5)
[2016-10-04] MEDS: *HR* Heparin 5,000 UNIT/ML VIAL SQ SCH ×2 (05:36→13:51)
[2016-10-04] MEDS: Metoprolol XL (24 HR) Succ 50 MG TAB.ER.24H PO SCH (08:09)
--- NOTE | 2016-10-04 10:51 | Internal Med Progress Note ---
Date of Encounter: 10/04/16 Time of Encounter: 10:51 - Assessment and plan (1) Pancytopenia Current Visit: Yes Status: Chronic Assessment and plan: Chronic, stable (2) Sepsis Current Visit: No Status: Acute Assessment and plan: SIRS 2/4 on admission HR 115, and WBC 16.5 with Pneumonia and/or GI source. Urine - positive for s. pneumoniae. sputum Cx postive for gram + cocci and gram - rods. GI panel came back negative. Chest CT LLL pneumoniae 3 mm central lobular nodule Continue ceftriaxone and Flagyl Qualifiers: Sepsis type: Pneumococcus Qualified Code(s): A40.3 - Sepsis due to Streptococcus pneumoniae (3) Pneumonia Current Visit: Yes Status: Acute Assessment and plan: hx: R pneumoectomy, cancer and chemo tx. Positive urine Cx. Chest CT LLL pneumoniae 3 mm central lobular nodule. Ct. ceftriaxone, azithromycin Qualifiers: Pneumonia type: due to Pneumococcus Laterality: left Lung location: lower lobe of lung Qualified Code(s): J13 - Pneumonia due to Streptococcus pneumoniae (4) Gastroenteritis Current Visit: Yes Status: Acute Assessment and plan: 1 week history of nausea, vomiting and diarrhea. GI panel negative Add Imodium (5) COPD (chronic obstructive pulmonary disease) Current Visit: Yes Status: Chronic Assessment and plan: Chronic, not in exacerbation Qualifiers: COPD type: unspecified COPD Qualified Code(s): J44.9 - Chronic obstructive pulmonary disease, unspecified (6) Hypomagnesemia Current Visit: Yes Status: Acute Assessment and plan: Improved with replacement (7) Acute on chronic renal failure Current Visit: Yes Status: Acute Assessment and plan: [place] CKD III Improved with IVF IVF discontinued Renal function remains stable Qualifiers: Acute renal failure type: unspecified Chronic kidney disease stage: stage 3 (moderate) Qualified Code(s): N17.9 - Acute kidney failure, unspecified; N18.3 - Chronic kidney disease, stage 3 (moderate) (8) History of pneumonectomy Current Visit: Yes Status: Chronic Assessment and plan: stable (9) History of lung cancer Current Visit: Yes Status: Chronic (10) Hypertension Current Visit: Yes Status: Chronic Assessment and plan: Controlled, continue current meds Qualifiers: Hypertension type: essential hypertension Qualified Code(s): I10 - Essential (primary) hypertension (11) Tachycardia Current Visit: Yes Status: Resolved Assessment and plan: Improved with iVF and toprol, continue toprol - Subjective Interval history: Seen and evaluated at bedside NO complains, continues to have diarrhea, GI panel is negative HR is better controlled now - Constitutional Vitals: Temp Pulse Resp BP Pulse Ox 98.8 F 98 16 118/73 94 10/04/16 07:26 10/04/16 07:26 10/04/16 07:26 10/04/16 07:26 10/04/16 08:01 General appearance: Present: cooperative, A&O X 3, no acute distress, answers questions appropriately - Head Head exam: Present: atraumatic, normocephalic - Eye Eye exam: Present: PERRL, conjuntiva pink, sclera anicteric Pupils: Present: PERRL - Neck Neck exam general surgery: Present: supple, trachea midline. Absent: lymphadenopathy - Respiratory Respiratory exam: Present: decreased breath sounds (R lung zone), CTAB. Absent : accessory muscle use, rales, rhonchi, wheezes - Cardiovascular Cardiovascular exam: Present: RRR, +S1, +S2. Absent: diastolic murmur, gallop, rubs, systolic murmur - GI/Abdominal GI/Abdominal exam: Present: normal bowel sounds, soft, no peritoneal signs. Absent: distended, tenderness - Extremities Exam Extremities exam: Present: warm, radial pulses palpable and symmetrical. Absent : calf tenderness, cyanotic, pedal edema - Neurological Exam Neurological exam: Present: alert, CN II-XII intact, oriented X3, no focal deficits. Absent: pronater drift, facial droop, speech deficit - Skin Skin exam: Present: dry, intact Internal Medicine: Result - Labs CBC & Chem 7: 10/04/16 04:48 10/04/16 04:48 Labs: Short CBC 10/04/16 Range/Units 04:48 WBC 12.9 H (4.3-11.1) K/mcL Hgb 11.7 L (12.9-16.9) g/dL Hct 37.7 (37.5-50.1) % Plt Count 138 L (140-400) K/mcL BMP 10/04/16 04:48 Sodium 140 Potassium 3.9 Chloride 114 H Carbon Dioxide 19 BUN 31 H Creatinine 2.51 H Glucose 94 Calcium 9.2 - ABG Interpretation ABG results: PT/INR, D-dimer PT 14.5 Seconds (9.4-12.1) H 10/01/16 19:57 Consult Discharge Plan - Plan Referrals: Tyron Gonzales, [Primary Care Provider] - (Office will call patient with and appointment once they have some cancellations. But please call the office at discharge to make the office aware)
[2016-10-05] MEDS: *HR* Heparin 5,000 UNIT/ML VIAL SQ SCH ×3 (00:18→15:54)
[2016-10-05] MEDS: Azithromycin 500 MG in D5% in Water 250 ML IVPB SCH (00:19)
--- NOTE | 2016-10-05 09:40 | Discharge Summary ---
Date of Encounter: 10/05/16 Time of Encounter: 09:40 - Discharge Diagnosis (1) Sepsis Status: Acute Qualifiers: Sepsis type: Pneumococcus Qualified Code(s): A40.3 - Sepsis due to Streptococcus pneumoniae (2) Pneumonia Status: Acute Qualifiers: Pneumonia type: due to Pneumococcus Laterality: left Lung location: lower lobe of lung Qualified Code(s): J13 - Pneumonia due to Streptococcus pneumoniae (3) Acute on chronic renal failure Status: Acute Qualifiers: Acute renal failure type: unspecified Chronic kidney disease stage: stage 3 (moderate) Qualified Code(s): N17.9 - Acute kidney failure, unspecified; N18.3 - Chronic kidney disease, stage 3 (moderate) (4) Gastroenteritis Status: Acute (5) History of pneumonectomy Status: Chronic (6) Hypomagnesemia Status: Acute (7) DVT prophylaxis Status: Acute (8) Tachycardia Status: Resolved - Discharge Medications Home Medications: Metoprolol XL (24 HR) Succ [Toprol XL] 25 mg PO QAM 04/01/15 [History] Albuterol Sulfate [Proair Hfa] 2 puff IH Q4H PRN 12/13/15 [History] Calcitriol [Rocaltrol] 0.25 mcg PO DAILY 10/01/16 [History] Ergocalciferol (VITAMIN D2) [Vitamin D2] 50,000 unit PO QWEEK 10/01/16 [History] Allergies/Adverse Reactions: Allergies No Known Allergies Allergy (Verified 12/13/15 07:31) Date of admission: 10/01/16 23:48 Primary care physician: Tyron Gonzales - Patient Status Condition: Fair - Discharge Instructions Follow Up With: Tyron Gonzales DO [Primary Care Provider] - (Office will call patient with and appointment once they have some cancellations. But please call the office at discharge to make the office aware) Forms: ED Satisfaction Letter Hospital course: Mr. Escalante is a 61 year old male - Time Spent with Patient Total time spent providing and/or coordinating discharge services: - Constitutional Vitals: Temp Pulse Resp BP Pulse Ox 98.3 F 96 18 132/89 97 10/05/16 06:47 10/05/16 06:47 10/05/16 06:47 10/05/16 06:47 10/05/16 06:47 General appearance: Present: cooperative, A&O X 3, no acute distress, answers questions appropriately
[2016-10-05] MEDS: Metoprolol XL (24 HR) Succ 50 MG TAB.ER.24H PO SCH (09:47)
--- NOTE | 2016-10-05 10:09 | Internal Med Progress Note ---
<Chuy Dale - Last Filed: 10/05/16 11:50> Date of Encounter: 10/05/16 Time of Encounter: 10:05 - Assessment and plan (1) Sepsis Current Visit: No Status: Acute Assessment and plan: SIRS 2/4 on admission HR 115, and WBC 16.5 with Pneumonia and/or GI source. Urine - positive for s. pneumoniae. sputum Cx postive for gram + cocci and gram - rods. GI panel came back negative. Chest CT LLL pneumoniae 3 mm central lobular nodule Discontinue ceftriaxone, azithromycin Start Levaquin 750 mg q48hrs due to CKD 3 Qualifiers: Sepsis type: Pneumococcus Qualified Code(s): A40.3 - Sepsis due to Streptococcus pneumoniae (2) Pneumonia Current Visit: Yes Status: Acute Assessment and plan: hx: R pneumoectomy, cancer and chemo tx. Positive urine Cx. Chest CT LLL pneumoniae 3 mm central lobular nodule. Sputum culture came back positive for gram - rods. Discontinue ceftriaxone, azithromycin Start Levaquin 750 mg q48hrs due to CKD 3 Qualifiers: Pneumonia type: due to Pneumococcus Laterality: left Lung location: lower lobe of lung Qualified Code(s): J13 - Pneumonia due to Streptococcus pneumoniae (3) Acute on chronic renal failure Current Visit: Yes Status: Acute Assessment and plan: [place] CKD III Improved with IVF IVF discontinued Renal function remains stable Qualifiers: Acute renal failure type: unspecified Chronic kidney disease stage: stage 3 (moderate) Qualified Code(s): N17.9 - Acute kidney failure, unspecified; N18.3 - Chronic kidney disease, stage 3 (moderate) (4) Gastroenteritis Current Visit: Yes Status: Acute Assessment and plan: 1 week history of nausea, vomiting and diarrhea. GI panel negative continue Imodium PRN (5) History of pneumonectomy Current Visit: Yes Status: Chronic Assessment and plan: stable (6) Hypomagnesemia Current Visit: Yes Status: Acute Assessment and plan: Improved with replacement (7) DVT prophylaxis Current Visit: Yes Status: Acute Assessment and plan: continue heparin. (8) Tachycardia Current Visit: Yes Status: Resolved Assessment and plan: Improved with iVF and toprol, continue toprol - Subjective Interval history: Mr Escalante is 61 yo M with a 1 week history of tirenedess and general weakness with a Hx: CKD 3, COPD, Lung cancer with R Pneumoectomy on 12/06 and last chemo 10/07, and a recent visit to [facility] ED 09/30/16 with similar symptoms. he reports nausea, vomiting, diarrhea, chills and a decrease in appetite for 1 week. He denies fever, chest pain, abdominal pain, change in urine, or rash. Today he report feeling back to normal. he denies n/v/d/c today. - Constitutional Vitals: Temp Pulse Resp BP Pulse Ox 98.3 F 96 18 132/89 97 10/05/16 06:47 10/05/16 06:47 10/05/16 06:47 10/05/16 06:47 10/05/16 06:47 General appearance: Present: cooperative, A&O X 3, no acute distress, answers questions appropriately - Head Head exam: Present: atraumatic, normocephalic - Respiratory Respiratory exam: Absent: accessory muscle use, rales, rhonchi, wheezes Additional comments: decreased lung sounds on right - Cardiovascular Cardiovascular exam: Present: RRR, +S1, +S2. Absent: diastolic murmur, gallop, rubs, systolic murmur - GI/Abdominal GI/Abdominal exam: Present: normal bowel sounds, soft, no peritoneal signs. Absent: distended, tenderness - Neurological Exam Neurological exam: Present: alert, oriented X3 - Psychiatric Psychiatric exam: Present: normal affect, normal mood Internal Medicine: Result - Labs CBC & Chem 7: 10/05/16 09:59 10/05/16 09:59 - ABG Interpretation ABG results: PT/INR, D-dimer PT 14.5 Seconds (9.4-12.1) H 10/01/16 19:57 Consult Discharge Plan - Plan Referrals: Tyron Gonzales DO [Primary Care Provider] - (Office will call patient with and appointment once they have some cancellations. But please call the office at discharge to make the office aware) <Florencio Lutz - Last Filed: 10/05/16 17:28> Date of Encounter: 10/05/16 - Assessment and plan (1) Pancytopenia Current Visit: Yes Status: Chronic (2) Sepsis Current Visit: No Status: Acute Qualifiers: Sepsis type: Pneumococcus Qualified Code(s): A40.3 - Sepsis due to Streptococcus pneumoniae (3) Pneumonia Current Visit: Yes Status: Acute Qualifiers: Pneumonia type: due to Pneumococcus Laterality: left Lung location: lower lobe of lung Qualified Code(s): J13 - Pneumonia due to Streptococcus pneumoniae (4) Gastroenteritis Current Visit: Yes Status: Acute (5) COPD (chronic obstructive pulmonary disease) Current Visit: Yes Status: Chronic Qualifiers: COPD type: unspecified COPD Qualified Code(s): J44.9 - Chronic obstructive pulmonary disease, unspecified (6) Hypomagnesemia Current Visit: Yes Status: Acute (7) Acute on chronic renal failure Current Visit: Yes Status: Acute Qualifiers: Acute renal failure type: unspecified Chronic kidney disease stage: stage 3 (moderate) Qualified Code(s): N17.9 - Acute kidney failure, unspecified; N18.3 - Chronic kidney disease, stage 3 (moderate) (8) History of pneumonectomy Current Visit: Yes Status: Chronic (9) History of lung cancer Current Visit: Yes Status: Chronic (10) Hypertension Current Visit: Yes Status: Chronic Qualifiers: Hypertension type: essential hypertension Qualified Code(s): I10 - Essential (primary) hypertension (11) Tachycardia Current Visit: Yes Status: Resolved - Constitutional Vitals: Temp Pulse Resp BP Pulse Ox 97.4 F L 96 18 125/86 96 10/05/16 16:22 10/05/16 16:22 10/05/16 16:22 10/05/16 16:22 10/05/16 16:22 Internal Medicine: Result - Labs CBC & Chem 7: 10/05/16 09:59 10/05/16 09:59 Labs: Short CBC 10/05/16 Range/Units 09:59 WBC 12.6 H (4.3-11.1) K/mcL Hgb 10.9 L (12.9-16.9) g/dL Hct 34.5 L (37.5-50.1) % Plt Count 152 (140-400) K/mcL BMP 10/05/16 09:59 Sodium 137 Potassium 3.7 Chloride 111 H Carbon Dioxide 18 L BUN 33 H Creatinine 2.63 H Glucose 153 H Calcium 9.1 - ABG Interpretation ABG results: PT/INR, D-dimer PT 14.5 Seconds (9.4-12.1) H 10/01/16 19:57 - Attending Attestation I examined this patient and my medical decision-making was reviewed with the Resident Physician on 10/05/16. I agree with the documented findings, disposition and treatment plan as described except to the extent set forth below. 61 M with hx of Lung CA s/p R pneumectomy, HTN , CKD III admitted and being managed for sepsis secondary to peumococcal pneumonia, VANDANA, Gastroenteritis He is laying flat and comfortable at time of review, denies new complains His VANDANA on CKD is improving Sepsis is improving as WBC continues to trend down. Cr is improving, and is back to baseline Sputum culture growing pseudomonas Diarrhea has resolved Physical exam : VSS, sinus tachycardia-asymptomatic, chest exam show decreased air entry on R lung zone, abdomen is soft and not tender, no palpable organomegaly, no pedal edema Agree with changing antibiotics to levaquin for pseudomonas, atypical and strep coverage Await final sputum culture Rest of details as in resident physician's documentation
[2016-10-05 10:10] LABS: Hematocrit 34.5 % (37.5-50.1); Hemoglobin 10.9 g/dL (12.9-16.9); Mean Corpuscular HGB Conc 31.6 g/dL (31.6-35.5); Mean Corpuscular Hemoglobin 28.6 pg (28.0-33.3); Mean Corpuscular Volume 90.6 fL (83.0-100.0); Mean Platelet Volume 10.2 fL (9.4-12.4); Platelet Count 152 K/mcL (140-400); Red Blood Count 3.81 M/mcL (4.19-5.50); Red Cell Distribution Width 14.3 % (11.5-14.5)
[2016-10-05 10:20] LABS: Calcium 9.1 mg/dL (8.6-10.8); Potassium 3.7 mEq/L (3.5-4.5)
[2016-10-05] MEDS: Levofloxacin 750 MG/150 ML 750 MG/150 ML BAG IVPB SCH (13:01)
[2016-10-06] MEDS: *HR* Heparin 5,000 UNIT/ML VIAL SQ SCH ×4 (00:35→21:24)
[2016-10-06 06:18] LABS: Hematocrit 38.4 % (37.5-50.1); Hemoglobin 11.9 g/dL (12.9-16.9); Mean Corpuscular Hemoglobin 27.9 pg (28.0-33.3); Mean Corpuscular Volume 90.1 fL (83.0-100.0); Mean Platelet Volume 11.2 fL (9.4-12.4); Platelet Count 208 K/mcL (140-400); Red Blood Count 4.26 M/mcL (4.19-5.50); Red Cell Distribution Width 14.3 % (11.5-14.5)
[2016-10-06] MEDS: Metoprolol XL (24 HR) Succ 50 MG TAB.ER.24H PO SCH (09:24)
--- NOTE | 2016-10-06 17:16 | Internal Med Progress Note ---
<Chuy Dale - Last Filed: 10/06/16 17:13> Date of Encounter: 10/06/16 Time of Encounter: 17:13 - Assessment and plan (1) Sepsis Current Visit: No Status: Acute Assessment and plan: SIRS 2/4 on admission HR 115, and WBC 16.5 with Pneumonia and/or GI source. Urine - positive for s. pneumoniae. sputum Cx postive for gram + cocci and gram - rods. GI panel came back negative. Chest CT LLL pneumoniae 3 mm central lobular nodule Discontinue ceftriaxone, azithromycin Start Levaquin 750 mg q48hrs due to CKD 3 Qualifiers: Sepsis type: Pneumococcus Qualified Code(s): A40.3 - Sepsis due to Streptococcus pneumoniae (2) Pneumonia Current Visit: Yes Status: Acute Assessment and plan: hx: R pneumoectomy, cancer and chemo tx. Positive urine Cx. Chest CT LLL pneumoniae 3 mm central lobular nodule. Sputum culture came back positive for gram - rods. Discontinue ceftriaxone, azithromycin Start Levaquin 750 mg q48hrs due to CKD 3 Qualifiers: Pneumonia type: due to Pneumococcus Laterality: left Lung location: lower lobe of lung Qualified Code(s): J13 - Pneumonia due to Streptococcus pneumoniae (3) Acute on chronic renal failure Current Visit: Yes Status: Acute Assessment and plan: Known CKD III. - Improved with IVF, IVF discontinued - Renal function remains stable, will continue to monitor Cr Qualifiers: Acute renal failure type: unspecified Chronic kidney disease stage: stage 3 (moderate) Qualified Code(s): N17.9 - Acute kidney failure, unspecified; N18.3 - Chronic kidney disease, stage 3 (moderate) (4) Gastroenteritis Current Visit: Yes Status: Acute Assessment and plan: 1 week history of nausea, vomiting and diarrhea. GI panel negative continue Imodium PRN (5) History of pneumonectomy Current Visit: Yes Status: Chronic Assessment and plan: stable (6) Hypomagnesemia Current Visit: Yes Status: Acute Assessment and plan: Improved with replacement. (7) DVT prophylaxis Current Visit: Yes Status: Acute Assessment and plan: continue heparin. (8) Tachycardia Current Visit: Yes Status: Resolved Assessment and plan: Improved with iVF and toprol, continue toprol - Subjective Interval history: Mr Escalante is 61 yo M with a 1 week history of tirenedess and general weakness with a Hx: CKD 3, COPD, Lung cancer with R Pneumoectomy on 12/06 and last chemo 10/07, and a recent visit to [facility] ED 09/30/16 with similar symptoms. he reports nausea, vomiting, diarrhea, chills and a decrease in appetite for 1 week. He denies fever, chest pain, abdominal pain, change in urine, or rash. Today he continues to report no new symptoms. he denies n/v/d/c today. - Constitutional Vitals: Temp Pulse Resp BP Pulse Ox 98.6 F 87 14 122/84 97 10/06/16 16:47 10/06/16 16:47 10/06/16 16:47 10/06/16 16:47 10/06/16 16:47 General appearance: Present: cooperative, A&O X 3, no acute distress, answers questions appropriately - Respiratory Additional comments: decreased lung sounds on right due to pnueumoectomy - GI/Abdominal GI/Abdominal exam: Present: normal bowel sounds, soft, no peritoneal signs. Absent: distended, tenderness - Psychiatric Psychiatric exam: Present: normal affect, normal mood Internal Medicine: Result - Labs CBC & Chem 7: 10/06/16 04:56 10/06/16 04:56 Labs: Short CBC 10/06/16 Range/Units 04:56 WBC 11.9 H (4.3-11.1) K/mcL Hgb 11.9 L (12.9-16.9) g/dL Hct 38.4 (37.5-50.1) % Plt Count 208 (140-400) K/mcL BMP 10/06/16 04:56 Sodium 140 Potassium 4.0 Chloride 109 Carbon Dioxide 19 BUN 38 H Creatinine 2.51 H Glucose 91 Calcium 10.0 - ABG Interpretation ABG results: PT/INR, D-dimer PT 14.5 Seconds (9.4-12.1) H 10/01/16 19:57 Consult Discharge Plan - Plan Referrals: Tyron Gonzales DO [Primary Care Provider] - (Office will call patient with and appointment once they have some cancellations. But please call the office at discharge to make the office aware) <Rubin Prasad - Last Filed: 10/06/16 17:25> Date of Encounter: 10/06/16 - Constitutional Vitals: Temp Pulse Resp BP Pulse Ox 98.6 F 87 14 122/84 97 10/06/16 16:47 10/06/16 16:47 10/06/16 16:47 10/06/16 16:47 10/06/16 16:47 Internal Medicine: Result - Labs CBC & Chem 7: 10/06/16 04:56 10/06/16 04:56 Labs: Short CBC 10/06/16 Range/Units 04:56 WBC 11.9 H (4.3-11.1) K/mcL Hgb 11.9 L (12.9-16.9) g/dL Hct 38.4 (37.5-50.1) % Plt Count 208 (140-400) K/mcL BMP 10/06/16 04:56 Sodium 140 Potassium 4.0 Chloride 109 Carbon Dioxide 19 BUN 38 H Creatinine 2.51 H Glucose 91 Calcium 10.0 - ABG Interpretation ABG results: PT/INR, D-dimer PT 14.5 Seconds (9.4-12.1) H 10/01/16 19:57 - Attending Attestation I examined this patient and my medical decision-making was reviewed with the Resident Physician. I agree with the documented findings, disposition and treatment plan as described except to the extent set forth below.
[2016-10-07 04:41] LABS: Hematocrit 36.1 % (37.5-50.1); Hemoglobin 11.9 g/dL (12.9-16.9); Mean Corpuscular Hemoglobin 29.1 pg (28.0-33.3); Mean Corpuscular Volume 88.3 fL (83.0-100.0); Mean Platelet Volume 10.5 fL (9.4-12.4); Platelet Count 204 K/mcL (140-400); Red Blood Count 4.09 M/mcL (4.19-5.50)
[2016-10-07 04:52] LABS: Calcium 9.5 mg/dL (8.6-10.8); Potassium 3.6 mEq/L (3.5-4.5)
[2016-10-07] MEDS: *HR* Heparin 5,000 UNIT/ML VIAL SQ SCH (05:15)
[2016-10-07] MEDS: Metoprolol XL (24 HR) Succ 50 MG TAB.ER.24H PO SCH (08:52)
[2016-10-07] MEDS: Levofloxacin 750 MG/150 ML 750 MG/150 ML BAG IVPB SCH (11:08)
--- NOTE | 2016-10-07 11:15 | Discharge Summary ---
<Chuy Dale - Last Filed: 10/07/16 17:25> Date of Encounter: 10/07/16 Time of Encounter: 11:10 - Discharge Diagnosis (1) Sepsis Priority: Secondary Status: Acute Qualifiers: Sepsis type: Pneumococcus Qualified Code(s): A40.3 - Sepsis due to Streptococcus pneumoniae (2) Pneumonia Priority: Primary Status: Acute Qualifiers: Pneumonia type: due to Pneumococcus Laterality: left Lung location: lower lobe of lung Qualified Code(s): J13 - Pneumonia due to Streptococcus pneumoniae (3) Acute on chronic renal failure Priority: Secondary Status: Acute Qualifiers: Acute renal failure type: unspecified Chronic kidney disease stage: stage 3 (moderate) Qualified Code(s): N17.9 - Acute kidney failure, unspecified; N18.3 - Chronic kidney disease, stage 3 (moderate) (4) Gastroenteritis Priority: Secondary Status: Acute (5) History of pneumonectomy Priority: Secondary Status: Chronic (6) Hypomagnesemia Priority: Secondary Status: Acute (7) DVT prophylaxis Priority: Secondary Status: Acute (8) Tachycardia Priority: Secondary Status: Resolved - Discharge Medications Prescriptions: Levofloxacin [Levaquin] 750 mg PO Q4HR #3 tablet Home Medications: Metoprolol XL (24 HR) Succ [Toprol Xl] 25 mg PO QAM 04/01/15 [History] Albuterol Sulfate [Proair Hfa] 2 puff IH Q4H PRN 12/13/15 [History] Calcitriol [Rocaltrol] 0.25 mcg PO DAILY 10/01/16 [History] Ergocalciferol (VITAMIN D2) [Vitamin D2] 50,000 unit PO QWEEK 10/01/16 [History] Levofloxacin [Levaquin] 750 mg PO Q4HR #3 tablet 10/07/16 [Rx] Allergies/Adverse Reactions: No Known Allergies Allergy (Verified 12/13/15 07:31) Date of admission: 10/01/16 23:48 Primary care physician: Tyron Gonzales - Patient Status Disposition: Home, Self-Care Condition: Fair Overall status at discharge: patient is back to baseline - Discharge Instructions Instructions: Chronic Obstructive Pulmonary Disease (DC), Pneumonia (DC) Follow Up With: Tyron Gonzales, [Primary Care Provider] - (Office will call patient with and appointment once they have some cancellations. ) Forms: ED Satisfaction Letter - Diet and Activity Activity: increase activity as tolerated Hospital course: Mr. Escalante is a 61 year old male who was admitted on 10/01 for sepsis (WBC 16.5 , HR 110, lactic acid 1.0, and source LLL Pneumonia) w/ history of R pneumoectomy. Another possible source was GI, due to recent history of diarrhea. GI panel came back negative. CXR showed LLL pneumoniae 3 mm central lobular nodule which was confirmed b CT chest, and urine cx posiive for s. pneumoniae. In the Ed, he was started on vanc + zosyn, and then switched to azithromycin + Ceftriaxone. One 1st day of admission only HR >100, which responded to IVF and toprol. WBC 11.8-12.9 through hospital stay. Through out hospital stay, patient did not clinically coordinate to lab values. Sputum cultures returned positive for S. Pneumoniae and Pseudomonas. Patient was switched to Levaquin 750 mg q48hrs. patient received 2 doses levaquin IV and was discharged with a prescription of 3 doses PO q48 hours. On admission patient Cr was 3.04, baseline Cr 2.5. On first day admission, Cr returned to 2.61 and remained at 2.4 to 2.63 for the remaining of admission. - Time Spent with Patient Total time spent providing and/or coordinating discharge services: - Constitutional Vitals: Temp Pulse Resp BP Pulse Ox 98.2 F 89 18 110/74 97 10/07/16 07:11 10/07/16 07:11 10/07/16 07:11 10/07/16 07:11 10/07/16 07:11 General appearance: Present: cooperative, A&O X 3, no acute distress, answers questions appropriately - Head Head exam: Present: atraumatic, normocephalic - Respiratory Respiratory exam: Present: decreased breath sounds (decreased lung sounds on R due to Pneumoectomy.) - Cardiovascular Cardiovascular exam: Present: RRR, +S1, +S2. Absent: diastolic murmur, gallop, rubs, systolic murmur - GI/Abdominal GI/Abdominal exam: Present: normal bowel sounds, soft, no peritoneal signs. Absent: distended, tenderness - Neurological Exam Neurological exam: Present: alert, oriented X3 - Psychiatric Psychiatric exam: Present: normal affect, normal mood <Shanice,Rubin P - Last Filed: 10/07/16 18:06> Date of Encounter: 10/07/16 Date of admission: 10/01/16 23:48 Primary care physician: Tyron Gonzales [facility] course: Mr. Escalante is a 61 year old male - Time Spent with Patient Total time spent providing and/or coordinating discharge services: - Constitutional Vitals: Temp Pulse Resp BP Pulse Ox 98.3 F 86 14 107/74 97 10/07/16 11:27 10/07/16 11:27 10/07/16 11:27 10/07/16 11:27 10/07/16 11:27 - Attending Attestation I examined this patient and my medical decision-making was reviewed with the Resident Physician. I agree with the documented findings, disposition and treatment plan as described except to the extent set forth below. patient will receive levofloxacin q48 hours.
[2016-10-07 11:30] VITALS: BP 107/74
== END 2016-10-07 13:06 | disposition home or self-care (01) | DRG 871 ==
LOC: EMEROO 18:02 → 2ANU 18:02 → SUATTDRO 23:48
PROVIDERS: ADMIT Internal Medicine; ATTEND Internal Medicine